=== PATIENT | female | born 1975 | race Caucasian/White ===

== ENCOUNTER 2017-07-11 18:57 | Emergency (ER) | payer MEDICAID, OTHER ==
[~2017-07-11] VITALS: Ht 149.9 cm; Wt 120.0 kg
[~2017-07-11 18:57] MED LIST: ARMO120T PO
[2017-07-11 19:04] VITALS: BP 196/91; PULSE 70; RESP 16; TEMP 98.3; O2SAT 98
[2017-07-11] MEDS ORDERED: LEVO.2 PO (19:11)
[2017-07-11] MEDS ORDERED: NAPROXEN 500 MG TAB PO ONE (19:30)
[2017-07-11] MEDS ORDERED: TETANUS/DIPHTHERIA TOXOID ADULT 0.5 ML VIAL IM ONE (19:30)
--- NOTE | 2017-07-11 19:33 | PD ---
HPI Chief Complaint: Injury Time Seen by Provider: 19:24 Travel History International Travel<30 days: No Contact w/Intl Traveler<30days: No Traveled to known affect area: No History of Present Illness HPI Patient comes emergency Department complaining of right knee pain after a mechanical fall. Patient states she walked down stairs the front porch that are uneven and when she got to the last step she lost her balance going straight down on her right knee. Denies any twisting of the knee. Patient having stabbing pain in the anterior aspect of right knee where there is an abrasion. The patient denies any radiation of the pain. Denies hitting her head, loss of consciousness, numbness or tingling anywhere, , or doing anything for this prior to coming to the emergency department. Denies anything making it better. Pain is worse with certain movement. Patient reports her tetanus shot is not up-to-date. PFSH Past Medical History Asthma: Yes Diminished Hearing: No Thyroid Disease: Yes (HYPOTHYROID) Tetanus Vaccination: Unknown Influenza Vaccination: No ?: Not LMP: 06/08/2017 : 8 Para: 5 Miscarriage: 3 Past Surgical History Surgical History: No Previous Surgery Social History Alcohol Use: No Tobacco Use: No Substance Use: No Allergies-Medications (Allergen,Severity, Reaction): Coded Allergies: No Known Allergies (Verified Adverse Reaction, Unknown, 07/11/17) Reported Meds & Prescriptions Reported Meds & Active Scripts Active Naprosyn (Naproxen) 500 Mg Tab 500 Mg PO Q12HR PRN Reported Synthroid (Levothyroxine Sodium) 200 Mcg Tab 200 Mcg PO DAILY [place] Thyroid (Thyroid) 120 Mg Tab 180 Mg PO DAILY Review of Systems Except as stated in HPI: all other systems reviewed are Neg Physical Exam Narrative GENERAL: Well-developed, overly nourished, in no acute distress, and non-ill appearing. SKIN: Abrasion noted over anterior aspect of right knee. HEAD: Atraumatic. Normocephalic. EYES: Pupils equal and round. EOMI. No scleral icterus. No injection or drainage. ENT: No nasal bleeding or discharge. Mucous membranes pink and moist. NECK: Trachea midline. Supple. No nuclear rigidity. CARDIOVASCULAR: Dorsal pulses 2+, intact, and equal bilaterally. Capillary refill less than 2 seconds. RESPIRATORY: No accessory muscle use. No respiratory distress. MUSCULOSKELETAL: No obvious deformities. No clubbing. No cyanosis. No edema. Full range of motion. Knee: Negative patellar apprehension, varus and valgus maneuvers, anterior draw test, and Jared test. Pulses equal BL distal to injury. Capillary refill less than 2 seconds distal to injury and equal BL. FROM distal to injury and equal BL. Strength distal to injury equal BL. NV intact distal to injury. Dorsal pulses equal BL. Sensation equal BL 1st web space. Patient reports tenderness to palpation over anterior aspect of right knee round abrasion. There is no crepitus or foreign body noted. NEUROLOGICAL: Awake and alert. No obvious cranial nerve deficits. Motor grossly within normal limits. Normal speech. PSYCHIATRIC: Appropriate mood and affect; insight and judgment normal. Data Data Last Documented VS Vital Signs Date Time Temp Pulse Resp B/P (MAP) Pulse Ox O2 Delivery O2 Flow Rate FiO2 07/11/17 20:21 07/11/17 19:04 98.3 70 16 98 Room Air Orders Orders Ice/Cold Pack (07/11/17 19:27) Knee, Complete (4vws) (07/11/17 ) Wound Care (07/11/17 19:27) Tetanus/Diphtheria Tox Adult (Tetanus/Di (07/11/17 19:30) Naproxen (Naprosyn) (07/11/17 19:30) Splint Or Brace Apply/Monitor (07/11/17 20:02) Ed Discharge Order (07/11/17 20:04) Crutches (07/11/17 20:04) MDM Medical Decision Making Medical Screen Exam Complete: Yes Emergency Medical Condition: Yes Interpretation(s) X-ray of the right knee read by the radiologist shows: Mild subcutaneous edema anteriorly. No acute osseous abnormality is identified. Differential Diagnosis Fracture, sprain, contusion, abrasion, laceration, other Narrative Course The patient appears to have suffered a contusion of the extremity. There is no clinical evidence to suspect bony injury by exam. Radiographic examination revealed no fracture seen at this time. The patient has full range of motion on active and passive motions. There is no significant edema. There is no proximal or distal joint effusion. The distal extremity appears neurovascularly intact, without evidence of neurovascular injury nor compartment syndrome. Tendon exam also was intact. The patient was discharged on pain medication instructions and given warnings for vascular compromise. The patient is to follow up with their regular physician or Orthopedics. The patient agrees with plan. The patient suffered abrasion. The abrasion are very superficial and non- repairable. There was no evidence to suggest foreign bodies. Visual and tactile exams were unremarkable. There was no evidence of neurovascular injury as well. The patients wound/s were cleaned and dressed. The patient was given signs and symptom warnings for infection, such as increasing pain, redness, swelling, associated heat, pus or fever. The patient was given instructions for timely follow up. The patient agreed with plan of care. Patient in no obvious distress upon re-evaluation. All pertinent Radiology result(s) discussed with patient. Patient was asked if they wanted to speak to my attending, which the patient did not wish to do at this time. Any questions/ concerns in reference to patient diagnosis/condition discussed and clarified prior to patient's discharge. Reinforced sheer importance of close follow up with patient's primary physician or primary care clinic. Instructed patient to return to ED immediately, if symptoms return/worsen. Patient showed understanding of above instructions. Further instructions and recommendations were detailed in discharge paperwork. Patient ambulated without difficulty out of ED at discharge. Diagnosis Primary Impression: Contusion of right knee, initial encounter Additional Impression: Abrasion Referrals: [facility] Patient Instructions: Abrasion (ED), Contusion in Adults (ED), Crutch Instructions (ED), General Instructions Additional Instructions: Follow-up with your primary care physician and/or orthopedics this week for reevaluation. Take all medication as prescribed. Apply ice to affected area 20 minutes per hour as needed for pain. Josafat wrap as needed for comfort. Use crutches as needed for support. Keep wound dry and clean as possible using soap and water. Use Neosporin to promote healing. Return to the emergency department if symptoms get worse. Med/Other Pt SpecificInfo: Prescription(s) given Scripts Naproxen (Naprosyn) 500 Mg Tab 500 MG PO Q12HR Y for PAIN SCALE 1 TO 10, #14 TAB 0 Refills Prov: Mazin Dennis MD 07/11/17 Disposition: LEFT WITHOUT BEING SEEN Shawn Alas Jul 11, 2017 19:33
--- NOTE | 2017-07-11 19:58 | RADRPT ---
EXAM DATE/TIME: 07/11/2017 19:39 [facility] COMPARISON: No previous studies available for comparison. INDICATIONS : Pain due to fall. MEDICAL HISTORY : None. SURGICAL HISTORY : None. ENCOUNTER: Initial ACUITY: 1 day PAIN SCORE: 10/10 LOCATION: Right knee FINDINGS: Four views of the right knee demonstrate no fracture or dislocation. No joint effusion is present. Th ere is no significant arthropathy and mineralization is within normal limits. No radiopaque foreign b claritza is identified. There is mild subcutaneous edema anteriorly. CONCLUSION: Mild subcutaneous edema anteriorly. No acute osseous abnormality is identified. Angelo Nava MD on July 11, 2017 at 19:55 Board Certified Radiologist. This report was verified electronically.
[2017-07-11] MEDS ORDERED: NAPR500 PO (20:04)
== END 2017-07-11 20:47 | disposition home or self-care (01) ==
LOC: NEPD 18:57
DX: S80.01XA Contusion of right knee, initial encounter (principal); J45.909 Unspecified asthma, uncomplicated; E03.9 Hypothyroidism, unspecified; W10.9XXA Fall (on) (from) unspecified stairs and steps, initial encounter; Z79.899 Other long term (current) drug therapy; Z23 Encounter for immunization
CPT/HCPCS: 73564; 90471; 90714; 99283; E0113

== ENCOUNTER 2017-10-21 22:09 | Emergency (ER) | payer MEDICAID ==
[~2017-10-21] VITALS: Ht 152.4 cm; Wt 113.0 kg
[~2017-10-21 22:09] MED LIST changes: +LEVO.2 PO; +NAPR500 PO
[2017-10-21 22:12] VITALS: BP 143/67; PULSE 81; RESP 16; TEMP 98.8; O2SAT 97
== END 2017-10-22 01:45 | disposition left against medical advice (07) ==
LOC: NED 22:09
DX: Z53.21 Procedure and treatment not carried out due to patient leaving prior to being seen by health care provider (principal)
CPT/HCPCS: 99281